=== PATIENT | female | born 1995 | race Asian ===

== ENCOUNTER 2016-11-28 07:20 | Day surgery (SDC) | payer OTHER ==
[2016-11-27 11:46] VITALS: BMI 31.1
[2016-11-28] MEDS ORDERED: Lidocaine 1% w/Epinephrine 1:200K 30 ML VIAL ONE (08:57)
[2016-11-28] MEDS ORDERED: Bacitracin Zinc Ointment 30 gm TUBE ONE (08:57)
[2016-11-28] MEDS ORDERED: Fentanyl 100 MCG/2 ML VIAL ONE (09:04)
[2016-11-28] MEDS ORDERED: Dexamethasone 20 MG/5 ML VIAL ONE (09:28)
[2016-11-28] MEDS ORDERED: Ondansetron HCl/PF 4 MG/2 ML Vial ONE (09:28)
--- NOTE | 2016-11-29 08:35 | OP ---
DATE OF PROCEDURE: 11/28/2016 PREOPERATIVE DIAGNOSES: Left postauricular lymphangioma. POSTOPERATIVE DIAGNOSES: Left postauricular lymphangioma. PROCEDURES: Wide local excision of left postauricular hemangioma. SURGEON: Rony Escobar M.D. ESTIMATED BLOOD LOSS: 0 mL COMPLICATIONS: None. ANESTHESIA: LMA. PROCEDURE: The patient was taken to the operating room. LMA anesthesia was obtained by the [facility] staff. The head was gently turned. The patient was prepped and draped in standard surgical fas hion. A mass in the postauricular area was extending from the superior aspect of the auricle to the mid portion of the auricle. Using an elliptical type incision, removed the excessive skin as a res ult of this mass. The skin and the mass was then removed by subcutaneous dissection using scissors and skin hooks. Following removal of the cyst, the incision in the cyst was made. It was noted to be a fluid. Straw colored fluid filled cyst with epithelial appearing sac. The wound was irrigated . Hemostasis was obtained and the subcuticular stitches were replaced using 4-0 Monocryl and the sk in was closed using chromic gut. The patient tolerated the procedure well.
== END 2016-11-28 11:23 | disposition home or self-care (01) ==
LOC: SDC 07:20
PROVIDERS: ATTEND Otolaryngology Plastic Surgery within the Head & Neck
PROC: 0HB2XZZ Excision of Right Ear Skin, External Approach (ICD-10-PCS; principal; 2016-11-28)
DX: D23.21 Other benign neoplasm of skin of right ear and external auricular canal (principal)
CPT/HCPCS: 88304; J1100; J2405; J3010